=== PATIENT | female | born 1995 | race Caucasian/White ===

== ENCOUNTER 2018-08-29 09:53 | Inpatient (IN) | payer OTHER ==
[~2018-08-29] VITALS: Ht 162.6 cm; Wt 76.7 kg
[2018-08-29 10:01] VITALS: BP 146/91
--- NOTE | 2018-08-29 10:08 | NUR ---
Patient ambulated to bed 11. RN evaluating patient at bedside.
--- NOTE | 2018-08-29 10:10 | NUR ---
URINE COLLECTED AND SENT TO LAB
--- NOTE | 2018-08-29 10:10 | NUR ---
PT PLACED ON PLAN EXAMINER
--- NOTE | 2018-08-29 10:10 | NUR ---
C/O UPPER ABDOMINAL/EPIGASTRIC PAIN, NAUSEA, AND SUPRAPUBIC TENDERNESS X1 WEEK. PT HAS UTI SYMPTOMS OF FREQUENCY & DYSURIA, DENIES VOMITING/DIARRHEA AND FEVER, RECENT INJURY. ABDOMEN IS SOFT, FLAT AND TENDER TO EPIGASTRIC AREA AND BILAT LOWER QUADRANTS. SKIN IS PINK/WARM/DRY; AAOX4 WITH EVEN AND STEADY GAIT;HR EVEN AND REGULAR; VSS; PATIENT POSITIONED FOR COMFORT; HOB ELEVATED; BEDRAILS UP X1; BED DOWN. ER MD MADE AWARE OF PT STATUS.
--- NOTE | 2018-08-29 10:57 | NUR ---
CT WITH CONTRAST CONSENT SIGNED
[2018-08-29 11:22] LABS: BASOPHILS % (AUTO) 0.1 % (0.0-2.0); EOSINOPHILS # (AUTO) 0.1 K/uL (0-0.4); EOSINOPHILS % (AUTO) 0.5 % (0.0-4.0); HEMATOCRIT 44.7 % (36-48); LYMPHOCYTES # (AUTO) 1.3 K/uL (2.5-16.5); LYMPHOCYTES % (AUTO) 11.3 % (20.5-51.1); MEAN CORPUSCULAR HEMOGLOBIN 30 pg (27-31); MEAN CORPUSCULAR HGB CONC 34 g/dL (33-37); MEAN CORPUSCULAR VOLUME 89.8 fL (80-94); MONOCYTES # (AUTO) 0.8 K/uL (0.8-1.0); MONOCYTES % (AUTO) 7.3 % (1.7-9.3); NEUTROPHILS % (AUTO) 80.8 % (42.2-75.2); PLATELET COUNT (AUTO) 220 K/uL (140-450); RED BLOOD CELL COUNT(AUTO) 4.97 MIL/uL (4.20-5.40); RED CELL DISTRIBUTION WIDTH 12.7 % (11.6-13.7); WHITE BLOOD COUNT (AUTO) 11.2 K/uL (4.8-10.8)
[2018-08-29 11:24] LABS: APPEARANCE,URINE CLOUDY (CLEAR); BILIRUBIN,URINE NEGATIVE (NEGATIVE); BLOOD, URINE 2+ (NEGATIVE); COLOR,URINE YELLOW (YELLOW); LEUKOCYTE ESTERASE ,URINE 1+ (NEGATIVE); NITRITE, URINE NEGATIVE (NEGATIVE); UGLUCOSE NEGATIVE (NEGATIVE)
[2018-08-29 11:50] LABS: URINE AMORPHOUS URATE 1+ /HPF (None Seen); WBC,URINE 0-5 /HPF (0-5)
[2018-08-29 12:28] LABS: ANION GAP 15.9 (8-16); CARBON DIOXIDE 24.7 mmol/L (21-32); CREATININE 0.7 mg/dL (0.6-1.3); POTASSIUM 3.6 mmol/L (3.5-5.1)
[2018-08-29 12:32] LABS: ALBUMIN 4.3 g/dL (3.4-5.0); TOTAL BILIRUBIN 1.1 mg/dL (0.0-1.0)
--- NOTE | 2018-08-29 12:45 | NUR ---
PT TO CT VIA WC
--- NOTE | 2018-08-29 12:55 | NUR ---
returned from ct via wc
[2018-08-29] MEDS ORDERED: PIPERACILLIN/TAZOBACTAM 3.375 GM in DEXTROSE 5% 50 ML IV ONE ×2 (16:10→16:20)
[2018-08-29] MEDS ORDERED: NACL 0.9% 1,000 ML IV ONE ×2 (16:10→16:20)
[2018-08-29] MEDS ORDERED: MORPHINE SULFATE 4 MG/ML SYR IVP ONE (16:20)
[2018-08-29] MEDS ORDERED: PIPERACILLIN/TAZOBACTAM 3.375 GM VIAL IV ONE ×2 (16:23→22:40)
[2018-08-29] MEDS ORDERED: MORPHINE SULFATE 4 MG/ML SYR ONE (16:23)
--- NOTE | 2018-08-29 16:32 | NUR ---
Dr. Dunlap evaluating patient at bedside.
[2018-08-29] MEDS ORDERED: MORPHINE SULFATE 4 MG/ML SYR IVP PRN ×2 (16:40→22:15)
[2018-08-29] MEDS ORDERED: ONDANSETRON 4 MG/2 ML VIAL IVP PRN ×2 (16:40→22:05)
[2018-08-29 16:45] VITALS: BP 125/73
--- NOTE | 2018-08-29 16:45 | NUR ---
RECEIVED PT FROM ER NURSE, PT IS AWAKE AND ALERT AND AMBULATED TO THE BED FROM THE [facility], PT HAS AN IV LINE ON THE LEFT AC G.20 ON SALINE LOCK. VITAL SIGNS TAKEN AND BP IS 125/73. PULSE IS 104, TEMPERATURE IS 98.2, O2 SATURATION IS 100%, PT VERBALIZED A PAIN RATE OF 5/10 ON MID-ABDOMEN. NO OTHER UNTOWARD SIGN AND SYMPTOM NOTED. WILL MONITOR PT.
--- NOTE | 2018-08-29 16:57 | NUR ---
Pt transferred to Med/Surg via [facility] room 125-a report to ansley smith
--- NOTE | 2018-08-29 17:15 | NUR ---
MRSA SWAB WAS DONE TO PT NOW AND SAMPLE WAS SENT TO LAB.
[2018-08-29] MEDS: DEXT 5% /NACL 0.9% 1,000 ML IV SCH (17:30)
--- NOTE | 2018-08-29 17:30 | NUR ---
PT WAS STARTED ON D5NS AT 75ML/HR NOW
--- NOTE | 2018-08-29 19:15 | NUR ---
ENDORSED PT TO COUNTY MANAGER NURSELUCIANA FOR CONTINUITY OF CARE, PT IS AWAKE AND STABLE WITH FAMILY ON THE BEDSIDE.
--- NOTE | 2018-08-29 19:16 | NUR ---
RECEIVED PT FROM ER NURSE, PT IS AWAKE AND ALERT AMBULATORY, PT HAS AN IV LINE ON THE LEFT AC G.20 ON SALINE LOCK. PT C/O OF 8/10 PAIN EPIGASTRIC AREA-R LOWER QUADRANT. AFEBRILE.RESPIRATION NORMAL, NO SOB NO DISTRESS NOTED. POC REVIEWED, CALL LIGHT WITHIN REACH. BED AT LOWEST POSITION.WILL MONITOR PT.
[2018-08-29] MEDS: MORPHINE SULFATE 2 MG/ML SYR IVP PRN (19:17)
[2018-08-29 20:00] VITALS: BP 104/60
--- NOTE | 2018-08-29 21:05 | NUR ---
TALKED TO DR. RUST OVER PHONE HE SAID PT TO GET CONSENT FOR LAPAROSCOPIC APPENDECTOMY AT 2200 TODAY, POSSIBLE OPEN APPENDECTOMY. WILL CARRY OUT CONSENT
[2018-08-29] MEDS: PIPER/TAZO 3.375GM/D5W PREMIX 50 ML IV SCH ×2 (21:34→22:30)
--- NOTE | 2018-08-29 21:52 | NUR ---
PT WAS WHEELED TO OR BY OR NURSES
[2018-08-29] MEDS ORDERED: PROPOFOL 200 MG/20 ML VIAL IV ONE (22:05)
[2018-08-29] MEDS ORDERED: NEOSTIGMINE 1:1000 10 MG/10 ML VIAL ONE (22:05)
[2018-08-29] MEDS ORDERED: SUCCINYLCHOLINE CHLORIDE 200 MG/10 ML VIAL IVP ONE (22:05)
[2018-08-29] MEDS ORDERED: KETOROLAC 30 MG/ML VIAL ONE (22:05)
[2018-08-29] MEDS ORDERED: GLYCOPYRROLATE 0.2 MG/ML VIAL ONE (22:05)
[2018-08-29] MEDS ORDERED: ONDANSETRON 4 MG/2 ML VIAL ONE (22:05)
[2018-08-29] MEDS ORDERED: DESFLURANE 240 ML BTL INH ONE (22:05)
[2018-08-29] MEDS ORDERED: DEXAMETHASONE 4 MG/ML VIAL ONE (22:05)
[2018-08-29] MEDS ORDERED: ROCURONIUM 50 MG/5 ML VIAL IV ONE (22:05)
[2018-08-29] MEDS ORDERED: HYDROmorphone 1 MG/ML AMP IVP PRN (22:05)
[2018-08-29] MEDS ORDERED: BUPIVACAINE-MPF/EPI 0.25% 30 ML VIAL INJ ONE (22:14)
[2018-08-29] MEDS ORDERED: ACETAMINOPHEN/CODEINE 300/30MG 1 TAB PO PRN (22:15)
[2018-08-29] MEDS ORDERED: HYDROmorphone PFS 2 MG/ML SYR ONE (22:17)
[2018-08-29] MEDS ORDERED: fentaNYL 0.05 MG/ML VIAL ONE (22:17)
[2018-08-29] MEDS: HYDROmorphone PFS 2 MG/ML SYR ONE ×2 (23:23→23:33)
--- NOTE | 2018-08-29 23:49 | NUR ---
PT RECEIVED FROM OR, PT SLEEPY BUT EASY AROUSABLE. PT C/O OF NO PAIN AT THIS TIME VITALS TAKEN : 97.5 AFEBRILE, 94% O2 SAT; HR 100; 109/58. WILL CONTINUE TO MONITOR POST SURGERY.
[2018-08-30] VITALS: BP 109/58
--- NOTE | 2018-08-30 01:00 | NUR ---
PT REFUSED TO HAVE WOUND ASSESSMENT AT THIS TIME DUE TO GUARDING JUST ARRIVED FROM OR S/P LAPAROSCOPIC APPENDECTOMY
[2018-08-30 04:00] VITALS: BP 96/63
[2018-08-30] MEDS: PIPER/TAZO 3.375GM/D5W PREMIX 50 ML IV SCH ×3 (04:41→20:11)
[2018-08-30] MEDS: DEXT 5% /NACL 0.9% 1,000 ML IV SCH ×2 (06:00→19:20)
[2018-08-30 06:30] LABS: ANION GAP 11.7 (8-16); CARBON DIOXIDE 24.7 mmol/L (21-32); CREATININE 0.6 mg/dL (0.6-1.3); POTASSIUM 4.4 mmol/L (3.5-5.1)
--- NOTE | 2018-08-30 07:01 | NUR ---
PT AWAKE IN BED, W07/31 TOLERABLE SURGICAL SITE PAIN. WITH SLIGHT SEROUS DRAINAGE ON MID ABDOMEN SITE. BUT ALL OTHERS SITE DRY AND INTACT. WILL ENDORSE TO NEXT SHIFT FOR CONTINUITY OF CARE
--- NOTE | 2018-08-30 07:01 | NUR ---
PT AMBULATED TO BATHROOM X1 WITH TOLERABLE PAIN ON THE SURGICAL SITE. PT TOLERATED WELL
--- NOTE | 2018-08-30 07:05 | NUR ---
RECEIVED PT FROM CALENDER TENDER NURSE, LUCIANA, PT IS AWAKE WITH MOTHER ON THE BEDSIDE, PT HAS A IV LINE ON THE LEFT AC G.20 WITH D5NS AT 75ML/HR INFUSING AND INTACT. PT HAS 3 SURGICAL INCISIONS ON THE ABDOMEN DUE TO S/P LAP APPENDECTOMY. NO SOB NOTED AND DENIES PAIN AT THIS TIME, NO SIGN OF DISTRESS NOTED AND WILL MONITOR PT.
[2018-08-30 07:36] LABS: BASOPHILS % (AUTO) 0.1 % (0.0-2.0); EOSINOPHILS % (AUTO) 0.1 % (0.0-4.0); HEMATOCRIT 38.1 % (36-48); HEMOGLOBIN 12.8 g/dL (12.0-16.0); LYMPHOCYTES # (AUTO) 0.3 K/uL (2.5-16.5); LYMPHOCYTES % (AUTO) 2.6 % (20.5-51.1); MEAN CORPUSCULAR HEMOGLOBIN 30 pg (27-31); MEAN CORPUSCULAR HGB CONC 34 g/dL (33-37); MEAN CORPUSCULAR VOLUME 90.1 fL (80-94); MONOCYTES # (AUTO) 0.1 K/uL (0.8-1.0); MONOCYTES % (AUTO) 1.3 % (1.7-9.3); NEUTROPHILS # (AUTO) 9.3 K/uL (1.8-7.7); NEUTROPHILS % (AUTO) 95.9 % (42.2-75.2); PLATELET COUNT (AUTO) 206 K/uL (140-450); RED BLOOD CELL COUNT(AUTO) 4.23 MIL/uL (4.20-5.40); RED CELL DISTRIBUTION WIDTH 12.5 % (11.6-13.7); WHITE BLOOD COUNT (AUTO) 9.7 K/uL (4.8-10.8)
[2018-08-30 08:00] VITALS: BP 106/57
--- NOTE | 2018-08-30 08:18 | NUR ---
PATIENT HAS BEEN SCREENED AND CATEGORIZED LOW NUTRITION RISK. PATIENT WILL BE SEEN WITHIN 7 DAYS OF ADMISSION. 09/05/[address]
[2018-08-30] MEDS: FAMOTIDINE 20 MG TAB PO SCH (09:14)
--- NOTE | 2018-08-30 09:18 | NUR ---
PT IS AWAKE AND ORAL MEDICATION WAS GIVEN AND PT TOLERATED IT, NO FEELING OF NAUSEA, SISTER ON THE BEDSIDE. WILL MONITOR PT.
--- NOTE | 2018-08-30 10:30 | NUR ---
PT WAS ASSISTED TO AMBULATE IN THE HALLWAY, NO SOB NOTED. WILL MONITOR PT.
[2018-08-30] MEDS: HYDROcodone/APAP 5/325 MG 1 TAB TAB PO PRN ×2 (12:32→20:11)
--- NOTE | 2018-08-30 12:34 | NUR ---
PT IS AWAKE AND VERBALIZED A PAIN RATE OF 8/10, VITAL SIGNS CHECKED AND BP IS 114/67, PULSE IS75, O2 SATURATION IS 100%, ORAL MEDICATION WAS GIVEN AND PT TOLERATED IT. NO SIGN OF DISTRESS NOTED AND WILL MONITOR PT.
--- NOTE | 2018-08-30 12:44 | NUR ---
IV ZOSYN WAS GIVEN TO PT NOW.
--- NOTE | 2018-08-30 15:21 | NUR ---
CM NOTE SPOKE WITH SANJAY OF [facility] PH# [phone] TO SET UP AN OUTPATIENT FOLLOW UP APPOINTMENT ON SEPTEMBER 06, 2018 AT 2:30 PM AT THE CLINIC AT [address] [address]. I GAVE THE PATIENT A COPY OF HER OUTPATIENT FOLLOW UP SCHEDULE. CHARGE NURSE DENI GIPSON.
[2018-08-30 16:00] VITALS: BP 111/61
--- NOTE | 2018-08-30 19:10 | NUR ---
ENDORSED PT TO BANDOLEER PACKER NURSEVALERIA FOR CONTINUITY OF CARE, PT IS LYING ON THE BED, AWAKE WITH FAMILY ON THE BEDSIDE AND IS STABLE AT THIS TIME.
--- NOTE | 2018-08-30 19:11 | NUR ---
RECEIVED PT FROM AM SHIFT. PT IS AWAKE, ALERT 0 X 4. WITH MOTHER ON THE BEDSIDE, PT HAS A IV LINE ON THE LEFT AC G.20 WITH D5NS AT 75ML/HR INFUSING AND INTACT. PT HAS 3 SURGICAL INCISIONS ON THE ABDOMEN DUE TO S/P LAP APPENDECTOMY. 10/31 PAIN SURGICAL SITE, ABDOMEN, WILL MEDICATE PATIENT AND WILL MONITOR PT. PT LOW BED, CALL LIGHT WITHIN REACH.
[2018-08-30 20:00] VITALS: BP 114/72
--- NOTE | 2018-08-30 21:11 | NUR ---
LAI. SAID SURGICAL PAIN PAIN IS INCREASING, WILL CALL DAIRY SPECIALIST
[2018-08-30] MEDS: MORPHINE SULFATE 2 MG/ML SYR IVP PRN (21:52)
--- NOTE | 2018-08-30 21:52 | NUR ---
PT C/O OF 03/02 PAIN UNRELIEVED BY [facility]CO EARLIER.INFORMED DR. SPEARS MOLDING AND TRIM INSTALLER, WILL GIVE MORPHINE ORDERED
--- NOTE | 2018-08-30 23:00 | NUR ---
PT SLEEPING, NO COMPLAINTS AT THIS TIME.
--- NOTE | 2018-08-31 02:09 | NUR ---
FREQUENT ROUNDING DONE, PT SLEEPING, NO COMPLAINTS OF PAIN AT THIS TIME.
[2018-08-31] MEDS: ONDANSETRON 4 MG/2 ML VIAL IVP PRN ×2 (03:30→03:33)
[2018-08-31] MEDS: DEXT 5% /NACL 0.9% 1,000 ML IV SCH (05:10)
[2018-08-31] MEDS: PIPER/TAZO 3.375GM/D5W PREMIX 50 ML IV SCH ×2 (05:12→13:00)
--- NOTE | 2018-08-31 06:58 | NUR ---
PT AWAKE, IN BED. PT IN STABLE CONDITION, WILL ENDORSE FOR CONTINUITY OF CARE
--- NOTE | 2018-08-31 07:05 | NUR ---
RECEIVED PT FROM BLEACH PLANT OPERATOR NURSELUCIANA, PT IS AWAKE AND LYING ON THE BED WITH SIDE RAILS UP AND CALL LIGHT WITHIN REACH, PT HAS AN IV LINE ON THE LEFT AC G.20, INTACT AND WITH D5NS INFUSING AT 75ML/HR. PT DENIES PAIN AND HAS 3 SURGICAL INCISIONS ON THE ABDOMEN, NO DRAINAGE NOTED. NO SIGN OF DISTRESS NOTED AND WILL CONTINUE TO MONITOR PT.
--- NOTE | 2018-08-31 07:50 | NUR ---
PT IS AWAKE AND SEATED ON THE BD, VITAL SIGNS TAKEN AND IS WITHIN NORMAL LIMIT. NO SIGN OF DISTRESS NOTED AND WILL MONITOR PT.
[2018-08-31 08:00] VITALS: BP 97/59
[2018-08-31] MEDS: FAMOTIDINE 20 MG TAB PO SCH (09:35)
--- NOTE | 2018-08-31 11:30 | NUR ---
PT WAS ASSISTED TO THE BATHROOM AND PT PEE. ASSISTED BACK TO BED AND MADE COMFORTABLE.
[2018-08-31] MEDS ORDERED: HYDR-5122 PO (11:58)
[2018-08-31] MEDS ORDERED: AMOX-999 PO (12:01)
--- NOTE | 2018-08-31 13:10 | NUR ---
PT IS AWAKE, WOUND ASSESSMENT WAS DONE, REINFORCED AND PICTURE WAS TAKEN AND ATTACHED TO CHART.
--- NOTE | 2018-08-31 14:20 | NUR ---
DISCHARGED PT VIA WHEELCHAIR WITH MOTHER AND BOYFRIEND, DISCHARGE TEACHINGS AND INSTRUCTIONS GIVEN AND PT VERBALIZED UNDERSTANDING, IV LINE AND ARM BAND REMOVED AND VITAL SIGNS TAKEN AND IS STABLE.
== END 2018-08-31 14:20 | disposition home or self-care (01) | DRG 233 ==
LOC: MED 09:53 → MMU 16:19
PROVIDERS: ADMIT Internal Medicine Pulmonary Disease; ATTEND Internal Medicine Pulmonary Disease
PROC: 0DTJ4ZZ Resection of Appendix, Percutaneous Endoscopic Approach (ICD-10-PCS; principal; 2018-08-29 22:00)
DX: K35.32 Acute appendicitis with perforation, localized peritonitis, and gangrene, without abscess (principal); D72.829 Elevated white blood cell count, unspecified
CPT/HCPCS: 36415; 76856; 80048; 80053; 81001; 81025; 83690; 85025; 87070; 87075; 87081; 87086; 87205; 88304; 96374; 99285; J0330; J1100; J1170; J1885; J2270; J2405; J2543; J2704; J2710; J3010; J3490; J7042; J7120; Q0092; Q9967

== ENCOUNTER 2020-05-04 11:37 | Emergency (ER) | payer OTHER, SELFPAY ==
[~2020-05-04] VITALS: Ht 162.6 cm; Wt 76.2 kg
[~2020-05-04 11:37] MED LIST: AMOX-999 PO; HYDR-5122 PO
[2020-05-04 12:12] VITALS: BP 145/73
[2020-05-04 14:14] VITALS: BP 145/73
--- NOTE | 2020-05-04 14:15 | NUR ---
Pt assessed and discharged by ERMD. No nursing interventions performed.
--- NOTE | 2020-05-04 14:15 | NUR ---
Patient discharged with v/s stable. Written and verbal after care instructions given and explained. Patient alert, oriented and verbalized understanding of instructions. Ambulatory with steady gait. All questions addressed prior to discharge. ID band removed. Patient advised to follow up with PMD. Rx of Ibuprofen 600mg given. Patient educated on indication of medication including possible reaction and side effects. Opportunity to ask questions provided and answered.
== END 2020-05-04 13:01 | disposition home or self-care (01) ==
LOC: MED 11:37
DX: R05 Cough (principal); Z20.828 Contact with and (suspected) exposure to other viral communicable diseases; Z79.899 Other long term (current) drug therapy
CPT/HCPCS: 99282